=== PATIENT | male | born 1950 | race American Indian/Alaskan Native ===

== ENCOUNTER 2016-11-08 12:14 | Outpatient (CLI) | payer MEDICARE ==
[2016-11-08 12:56] LABS: Albumin 3.3 g/dL (3.9-5); Anion Gap 15 mmol/L; BUN/Creatinine Ratio 22.85; Blood Urea Nitrogen 16 mg/dL (9-20); Calcium 8.7 mg/dL (8.4-10.2); Carbon Dioxide 33 mmol/L (22-30); Chloride 95.7 mmol/L (98-107); Glucose 104 mg/dL (75-100); Phosphorous 3.4 mg/dL (2.5-4.5); Sodium 141 mmol/L (137-145); Uric Acid 7.6 mg/dL (3.5-7.6)
[2016-11-08 12:59] LABS: Bilirubin,Urine NEG (Negative); Blood,Urine NEG (Negative); Ketones,Urine NEG (Negative); Leukocyte Esterase,Urine LG (Negative); Mucus,Urine FEW /HPF; Nitrite,Urine NEG (Negative); Urobilinogen,Urine < 2.0 mg/dL (<2.0)
[2016-11-08 13:02] LABS: Basophils % (Auto) 0.5 % (0.0-1.8); Eosinophils % (Auto) 1.6 % (0.0-4.3); Hematocrit 31.1 % (35.5-45.6); Mean Corpuscular HGB Conc 32 % (32-34); Mean Corpuscular Hemoglobin 26 pg (28-32); Mean Corpuscular Volume 82 fl (84-94); Platelet Count 254 K/mm3 (140-440); Red Blood Count 3.82 M/mm3 (3.65-5.03); Red Cell Distribution Width 17.8 % (13.2-15.2); White Blood Count 7.2 K/mm3 (4.5-11.0)
[2016-11-10 11:00] LABS: Myeloperoxidase Antibody <1.0 AI (<1.0)
[2016-11-10 23:53] LABS: Abnormal Protein Band 1 0.3 g/dL (()); Albumin 3.1 g/dL (3.8-4.8); Gamma Globulin 1.2 g/dL (0.8-1.7)
== END 2016-11-08 12:15 | disposition home or self-care (01) ==
LOC: LAB 12:14
PROVIDERS: ATTEND Internal Medicine Nephrology
DX: C61 Malignant neoplasm of prostate (principal); E11.21 Type 2 diabetes mellitus with diabetic nephropathy; D64.9 Anemia, unspecified; R80.9 Proteinuria, unspecified; R60.0 Localized edema
CPT/HCPCS: 36415; 80048; 80074; 81001; 82040; 82565; 82570; 82575; 84100; 84156; 84165; 84166; 84550; 85025; 86021; 86038; 86160

== ENCOUNTER 2016-11-10 15:47 | Outpatient (CLI) | payer MEDICARE ==
--- NOTE | 2016-11-12 13:31 | Vascular Lab Report ---
LOWER EXTREMITY VENOUS DUPLEX: REASON FOR EXAM: Bilateral edema. COMMENTS ON THE RIGHT: All veins visualized are freely compressible without evidence of internal echogenicity. Flow is spontaneous and phasic throughout. COMMENTS ON THE LEFT: All veins visualized are freely compressible without evidence of internal echogenicity. Flow is spontaneous and phasic throughout. IMPRESSION: No evidence of acute or chronic deep venous thrombosis in either lower extremity.
== END 2016-11-10 15:48 | disposition home or self-care (01) ==
LOC: VAS 15:47
PROVIDERS: ATTEND Internal Medicine Nephrology
DX: R60.9 Edema, unspecified (principal)
CPT/HCPCS: 93970

== ENCOUNTER 2016-11-22 11:42 | Outpatient (CLI) | payer MEDICARE ==
[2016-11-22 12:47] LABS: Albumin 3.4 g/dL (3.9-5); Anion Gap 19 mmol/L; BUN/Creatinine Ratio 35.71; Blood Urea Nitrogen 25 mg/dL (9-20); Calcium 9.3 mg/dL (8.4-10.2); Carbon Dioxide 32 mmol/L (22-30); Glucose 183 mg/dL (75-100); Phosphorous 2.6 mg/dL (2.5-4.5); Potassium 3.7 mmol/L (3.6-5.0); Sodium 139 mmol/L (137-145)
== END 2016-11-22 11:43 | disposition home or self-care (01) ==
LOC: LAB 11:42
PROVIDERS: ATTEND Internal Medicine Nephrology
DX: I50.9 Heart failure, unspecified (principal); E11.8 Type 2 diabetes mellitus with unspecified complications; I10 Essential (primary) hypertension; R94.4 Abnormal results of kidney function studies; R80.9 Proteinuria, unspecified; E87.6 Hypokalemia; R60.9 Edema, unspecified
CPT/HCPCS: 36415; 80048; 82040; 84100